=== PATIENT | male | born 1955 | race Caucasian/White ===

== ENCOUNTER 2020-07-14 11:54 | Emergency (ER) | payer SELFPAY ==
--- NOTE | 2020-07-14 12:04 | NUR ---
PATIENT LEFT WITHOUT BEING SEEN BY DR. GOEL. NO FURTHER CARE PROVIDED FOR PATIENT.
== END 2020-07-14 12:04 | disposition left against medical advice (07) ==
LOC: MED 11:54
DX: R30.9 Painful micturition, unspecified (principal); Z53.21 Procedure and treatment not carried out due to patient leaving prior to being seen by health care provider